=== PATIENT | female | born 1965 | race Hispanic/Latino ===

== ENCOUNTER 2022-03-20 08:23 | Emergency (ER) | payer OTHER ==
[~2022-03-20] VITALS: Ht 157.5 cm; Wt 87.1 kg
[2022-03-20 08:57] LABS: BASOPHILS % (AUTO) 0.3 % (0.0-5.0); EOSINOPHILS % (AUTO) 0.7 % (0.0-8.0); HEMATOCRIT 43.8 % (36-48); LYMPHOCYTES % (AUTO) 47.3 % (21.0-51.0); MEAN CORPUSCULAR HEMOGLOBIN 28.4 pg (27.0-33.0); MEAN CORPUSCULAR VOLUME 83.6 fL (79-99); MONOCYTES % (AUTO) 4.8 % (3.0-13.0); NEUTROPHILS % (AUTO) 46.6 % (40.0-77.0); PLATELET COUNT (AUTO) 221 K/uL (130-400); RED BLOOD CELL COUNT(AUTO) 5.24 MIL/uL (4.00-5.50); RED CELL DISTRIBUTION WIDTH 12.4 % (11.0-15.5); WHITE BLOOD COUNT (AUTO) 5.9 K/uL (4.8-10.8)
[2022-03-20 09:05] LABS: CREATININE 0.6 mg/dL (0.5-1.5)
[2022-03-20 09:10] LABS: ALBUMIN 3.9 g/dL (3.5-5.0); TOTAL PROTEIN, SERUM 7.4 g/dL (6.0-8.3)
[2022-03-20 09:52] LABS: MAGNESIUM 1.4 mg/dL (1.80-2.40)
[2022-03-20] MEDS ORDERED: 0.9%NACL 1000ML 1,000 ML IV ONE ×2 (10:27→10:30)
[2022-03-20] MEDS ORDERED: ONDANSETRON 4MG INJ ONE (10:27)
[2022-03-20] MEDS ORDERED: ONDANSETRON 4MG INJ IVP ONE (10:30)
[2022-03-20] MEDS ORDERED: MAGNESIUM OXIDE 400 MG TABLET PO ONE (11:26)
[2022-03-20] MEDS ORDERED: MAGNESIUM OXIDE 400 MG TABLET PO SCH ×2 (11:30→12:00)
[2022-03-20] MEDS ORDERED: MECL-160 PO (11:58)
[2022-03-20] MEDS ORDERED: ONDA4TAB10 PO (11:58)
[2022-03-20 12:24] VITALS: BP 136/74
== END 2022-03-20 12:20 | disposition home or self-care (01) ==
LOC: EDH 08:23
DX: U07.1 COVID-19 (principal); R42 Dizziness and giddiness; E86.0 Dehydration; R11.0 Nausea; E11.9 Type 2 diabetes mellitus without complications; I10 Essential (primary) hypertension; E05.90 Thyrotoxicosis, unspecified without thyrotoxic crisis or storm; Z98.890 Other specified postprocedural states
CPT/HCPCS: 99285; 96374; 70450; 71045; 87635; 96361; 82550; 83735; 84484; 80053; 85025; 36415; 93005; C9803; J7030; J2405

== ENCOUNTER 2022-12-23 14:18 | Emergency (ER) | payer OTHER ==
[~2022-12-23] VITALS: Ht 154.9 cm; Wt 86.2 kg
[~2022-12-23 14:18] MED LIST: MECL-160 PO; ONDA4TAB10 PO
[2022-12-23 14:54] LABS: BASOPHILS % (AUTO) 0.6 % (0.0-5.0); EOSINOPHILS % (AUTO) 1.3 % (0.0-8.0); HEMATOCRIT 41.6 % (36-48); LYMPHOCYTES % (AUTO) 36.9 % (21.0-51.0); MEAN CORPUSCULAR HEMOGLOBIN 28.9 pg (27.0-33.0); MEAN CORPUSCULAR HGB CONC 33.4 g/dL (32.0-36.0); MEAN CORPUSCULAR VOLUME 86.5 fL (79-99); MONOCYTES % (AUTO) 4.5 % (3.0-13.0); NEUTROPHILS % (AUTO) 56.3 % (40.0-77.0); PLATELET COUNT (AUTO) 258 K/uL (130-400); RED BLOOD CELL COUNT(AUTO) 4.81 MIL/uL (4.00-5.50); RED CELL DISTRIBUTION WIDTH 12.7 % (11.0-15.5); WHITE BLOOD COUNT (AUTO) 8.9 K/uL (4.8-10.8)
[2022-12-23 15:02] LABS: CREATININE 0.6 mg/dL (0.5-1.5); POTASSIUM 4.5 mmol/L (3.5-5.1)
[2022-12-23 15:10] LABS: ALBUMIN 3.9 g/dL (3.5-5.0); TOTAL PROTEIN, SERUM 7.3 g/dL (6.0-8.3)
[2022-12-23 16:48] LABS: APPEARANCE,URINE CLEAR (CLEAR); BILIRUBIN,URINE NEGATIVE (NEGATIVE); COLOR,URINE LIGHT-YELLOW (YELLOW); GLUCOSE, URINE (UA) NEGATIVE (NEGATIVE); KETONES,URINE NEGATIVE (NEGATIVE); LEUKOCYTE ESTERASE ,URINE NEGATIVE Leu/uL (NEGATIVE); NITRATE,URINE NEGATIVE (NEGATIVE); OCCULT BLOOD,URINE MODERATE (NEGATIVE); PROTEIN,URINE NEGATIVE (NEGATIVE); UROBILINOGEN,URINE 0.2 mg/dL (0.2-1.0)
[2022-12-23 16:51] LABS: BACTERIA,URINE RARE /HPF (None Seen); MUCUS,URINE RARE LPF (None Seen); SQUAMOUS EPITHELIAL CELL,UR RARE /HPF (0-2)
[2022-12-23] MEDS ORDERED: MECL-226 PO (17:42)
[2022-12-23] MEDS ORDERED: ONDA4TAB10 PO (17:42)
[2022-12-23 17:51] VITALS: BP 131/72
[2022-12-23] MEDS ORDERED: MECLIZINE HCL 25 MG TABLET PO ONE (18:00)
== END 2022-12-23 17:58 | disposition home or self-care (01) ==
LOC: EDH 14:18
DX: R42 Dizziness and giddiness (principal); E11.9 Type 2 diabetes mellitus without complications; I10 Essential (primary) hypertension; Z90.710 Acquired absence of both cervix and uterus
CPT/HCPCS: 36415; 70450; 80053; 81001; 84484; 85025; 93005